=== PATIENT | male | born 1980 | race Caucasian/White ===

== ENCOUNTER 2025-05-21 23:17 | Emergency (ER) | payer OTHER ==
[~2025-05-21] VITALS: Ht 180.3 cm; Wt 86.4 kg
[2025-05-21 23:46] VITALS: TEMP 99.3
[2025-05-22 04:02] LABS: COVID AG,FIA SOURCE NASAL SWAB
[2025-05-22 04:21] LABS: GLUCOMETER DEV NAME(LOC) ERT.7; GLUCOSE,POINT OF CARE 214 MG/DL (70-110)
[2025-05-22 04:22] LABS: SARS-COV2 (COVID) ANTIGEN,FIA Negative (Negative)
[2025-05-22 09:22] VITALS: BP 118/74; PULSE 74; RESP 16; O2SAT 98
[2025-05-22] MEDS ORDERED: IBUP-1492 PO (10:13)
[2025-05-23] MEDS ORDERED: TRAZ-257 PO (09:46)
[2025-05-25] MEDS ORDERED: TRAZ-257 PO (10:10)
== END 2025-05-22 10:31 | disposition home or self-care (01) ==
LOC: EMS 23:17
DX: S20.219A Contusion of unspecified front wall of thorax, initial encounter (principal); S09.90XA Unspecified injury of head, initial encounter; R45.851 Suicidal ideations; Z20.822 Contact with and (suspected) exposure to COVID-19; Z98.890 Other specified postprocedural states; Y09 Assault by unspecified means; Y93.89 Activity, other specified; Y92.89 Other specified places as the place of occurrence of the external cause; Y99.8 Other external cause status
CPT/HCPCS: 70450; 71101; 72125; 72128; 72131; 82962; 99285